=== PATIENT | male | born 1995 | race Caucasian/White ===

== ENCOUNTER 2021-09-29 19:59 | Emergency (ER) | payer OTHER ==
[2021-09-29 20:07] VITALS: BMI 32.8
[2021-09-29 22:20] LABS: BASO % 0.7 % (0-2.0); EOS % 0.3 % (0-4.5); HEMATOCRIT 45.4 % (35.4-49); HEMOGLOBIN 15.6 GM/dL (11.7-16.9); LYMPH % 16.6 % (8-40); MCH 30.5 pg (25.7-33.7); MCHC 34.3 g/dl (32.0-35.9); MEAN CELL VOLUME 88.9 fl (80-96); MEAN PLT VOLUME 8.5 fl (7.5-11.1); MONO % 6.9 % (3.8-10.2); NEUT % 75.5 % (42.8-82.8); PLATELET COUNT 392 10^3/uL (134-434); RBC 5.11 M/mm3 (4.00-5.60); RDW 13.9 % (11.9-15.9); WHITE BLOOD COUNT 10.3 K/mm3 (4.0-10.0)
[2021-09-29] MEDS ORDERED: LORazepam 2 MG TABLET PO ONE (22:24)
[2021-09-29] MEDS ORDERED: LORazepam 1 MG TABLET ONE (22:40)
[2021-09-29 22:46] LABS: CHLORIDE 104 mmol/L (98-107); SODIUM 140 mmol/L (136-145)
[2021-09-29 22:49] LABS: ANION GAP 8 MMOL/L (8-16); BLOOD UREA NITROGEN 16.8 mg/dL (7-18); CO2 28 mmol/L (21-32)
[2021-09-29 22:50] LABS: ALBUMIN 4.2 g/dl (3.4-5.0); GLUCOSE,RANDOM 82 mg/dL (74-106)
[2021-09-29 22:52] LABS: SGPT/ALT 35 U/L (13-61)
[2021-09-29 22:53] LABS: BILIRUBIN,TOTAL 0.2 mg/dL (0.2-1); CREATININE 0.8 mg/dL (0.55-1.3); SGOT/AST 43 U/L (15-37); TOT PROT 7.6 g/dl (6.4-8.2)
[2021-09-29 22:55] LABS: ALK PHOS 111 U/L (45-117)
[2021-09-30 06:54] VITALS: BP 116/66; PULSE 98; TEMP 97.9
[2021-09-30 09:47] LABS: EPI CELLS 4 /uL (0-25.1); HYALINE CASTS 1 /uL (0-3.1); URINE APPEARANCE CLEAR; URINE BACTERIA 5 /uL (0-1359); URINE BILIRUBIN NEGATIVE (NEGATIVE); URINE COLOR YELLOW; URINE GLUCOSE (UA) NEGATIVE (NEGATIVE); URINE KETONE 1+ (NEGATIVE); URINE LEUK ESTERASE NEGATIVE (NEGATIVE); URINE NITRITE NEGATIVE (NEGATIVE); URINE PROTEIN 1+ (NEGATIVE); URINE RBC 6 /uL (0-23.9); URINE WBC 7 /uL (0-25.8)
[2021-09-30 14:47] LABS: URINE AMPHETAMINES NEGATIVE (NEGATIVE)
[2021-09-30 14:49] LABS: METHADONE, UR NEGATIVE (NEGATIVE); OPIATES, URI NEGATIVE (NEGATIVE); URINE BENZODIAZEPINES NEGATIVE (NEGATIVE)
[2021-09-30 14:58] LABS: COCAINE, UR POSITIVE (NEGATIVE); PHENCYCLIDINE,URINE POSITIVE (NEGATIVE); URINE BARBITURATES POSITIVE (NEGATIVE)
== END 2021-09-30 11:06 | disposition short-term general hospital (02) ==
LOC: JER 19:59
DX: F25.9 Schizoaffective disorder, unspecified (principal); F16.10 Hallucinogen abuse, uncomplicated
CPT/HCPCS: 71045-TC-FY; 80053; 80307; 81003; 82550; 82553; 84439; 84443; 85025; 87086; 87186; 93005; 93010; 99285-25; C9803; U0003; U0005

== ENCOUNTER 2022-11-27 00:01 | Emergency (ER) | payer OTHER ==
[2022-11-27 02:18] VITALS: BP 131/92; PULSE 119; RESP 20; TEMP 98.3; BMI 35.2
== END 2022-11-27 00:30 | disposition left against medical advice (07) ==
LOC: JER 00:01
DX: R10.30 Lower abdominal pain, unspecified (principal)
CPT/HCPCS: 99283-25

== ENCOUNTER 2023-05-18 00:42 | Emergency (ER) | payer OTHER ==
[2023-05-18 01:07] VITALS: BP 108/77; PULSE 100; RESP 18; TEMP 98.4; BMI 32.8
== END 2023-05-18 02:04 | disposition left against medical advice (07) ==
LOC: JER 00:42
DX: S00.12XA Contusion of left eyelid and periocular area, initial encounter (principal); H11.32 Conjunctival hemorrhage, left eye; S40.021A Contusion of right upper arm, initial encounter; S40.022A Contusion of left upper arm, initial encounter; R51.9 Headache, unspecified; M79.601 Pain in right arm; M79.602 Pain in left arm; Y04.8XXA Assault by other bodily force, initial encounter
CPT/HCPCS: 99281-25